=== PATIENT | female | born 1955 | race Caucasian/White ===

== ENCOUNTER 2024-10-14 18:45 | Emergency (ER) | payer OTHER ==
[~2024-10-14] VITALS: Ht 157.5 cm; Wt 91.8 kg
--- NOTE | 2024-10-14 18:55 | ED.PDOC ---
History of Present Illness HPI Comments 67-year-old obese female who is brought in by ambulance for 2 day history of shortness of breath and wheezing. Per EMS report, patient has a history of CHF, DM, HLD, and HTN. She endorses on progressively worsening symptoms following initial gradual in unprovoked onset. Breathing worsens whenever laying down and improves upon sitting right up. She denies having any chest pain, cough, congestion, fever, chills, or further associated symptoms. Time Seen by MD: 18:40 Reviewed Notes: Nurses Notes, Embroiderer Notes, Medications Allergies: Coded Allergies: NO KNOWN ALLERGIES (Unverified , 10/14/24) Information Source: Patient, Emergency Med Personnel Mode of Arrival: EMS Severity: Moderate Timing: Days Duration: Since onset Prehospital treatment: 12 Lead EKG, Dust Mop Maker Past Medical History PAST MEDICAL HISTORY: CHF, DM, High Lipids, HTN Past Medical History (Other): Obesity Surgical History: Surgical History (Other): cosmetic nasal surgery Family History Family History: Unknown Social History Smoker: Non-Smoker Alcohol: Denies ETOH Use Drugs: Denies Drug Use Lives In: Home All Other Systems: Reviewed and Negative (Comprehensive systems review obtained and negative except for what is stated in HPI) Physical Exam General Appearance: No Apparent Distress, Normal HEENT: Normal ENT Inspection, Pharynx Normal, TMs Normal Neck: Full Range of Motion, Non-Tender, Normal, Normal Inspection Respiratory: Chest Non-Tender, No Accessory Muscle Use, No Respiratory Distress, Wheezing (Within bilateral lung grant) Cardiovascular: No Edema, No JVD, No Murmur, No Gallop, Normal Peripheral Pulses, Regular Rate/Rhythm Breast Exam: Deferred Gastrointestinal: No Organomegaly, Non Tender, No Pulsatile Mass, Normal Bowel Sounds, Soft Genitalia: Deferred Pelvic: Deferred Rectal: Deferred Extremities: No calf tenderness, Normal capillary refill, Normal inspection, Normal range of motion, Non-tender, No pedal edema Musculoskeletal : Apperance: Normal Neurologic: Alert, boarder machine II-XII nml as Tested, No Motor Deficits, Normal Affect, Normal Mood, No Sensory Deficits Cerebellar Function: Normal Reflexes: Normal Skin: Dry, Normal Color, Warm Lymphatic: No Adenopathy Was a procedure done? Was a procedure done?: No EKG EKG : Pulse Rate (adult): 96 Blount: Normal Cardiac Rhythm: NSR Block: None Hypertrophy: None ST: Normal Differential Dx Considerations may include: Acute CHF exacerbation, AK, PE, ACS, URI, pneumonia, viral syndrome, among others X-Ray, Labs, Meds, VS Vital Signs Date Time Temp Pulse Resp B/P (MAP) Pulse Ox O2 Delivery O2 Flow Rate FiO2 10/14/24 19:04 96 10/14/24 18:47 96 10/14/24 18:47 18 97 Room Air* 0 21 10/14/24 18:47 98.8 95 18 175/85 (115) 97 98.8 Lab Test 10/14/24 20:21 10/14/24 19:07 Range/Units Troponin I High Sensitivity 3 L 4 </=34 ng/L White Blood Count 4.5 4.4-10.8 10^3/uL Red Blood Count 3.74 L 4.0-5.20 10^6/uL Hemoglobin 11.4 L 12.2-16.2 g/dL Hematocrit 33.0 L 36.0-46.0 % Mean Corpuscular Volume 88.2 80.0-100.0 fL Mean Corpuscular Hemoglobin 30.4 28.0-32.0 pg Mean Corpuscular Hemoglobin Concent 34.5 32.0-36.0 g/dL Red Cell Distribution Width 13.4 11.8-14.3 % Platelet Count 324 140-450 10^3/uL Mean Platelet Volume 7.8 6.9-10.8 fL Neutrophils (%) (Auto) 73.8 37.0-80.0 % Lymphocytes (%) (Auto) 13.3 10.0-50.0 % Monocytes (%) (Auto) 10.5 0.0-12.0 % Eosinophils (%) (Auto) 1.9 0.0-7.0 % Basophils (%) (Auto) 0.5 0.0-2.0 % Neutrophils # (Auto) 3.3 1.6-8.6 10 ^3/uL Lymphocytes # (Auto) 0.6 0.4-5.4 10 ^3/uL Monocytes # (Auto) 0.5 0-1.3 10 ^3/uL Eosinophils # (Auto) 0.1 0-0.8 10 ^3/uL Basophils # (Auto) 0 0-0.2 10 ^3/uL Nucleated Red Blood Cells 0.0 % Sodium Level 140 136-145 mmol/L Potassium Level 4.7 3.5-5.1 mmol/L Chloride Level 107 98-107 mmol/L Carbon Dioxide Level 24 20-31 mmol/L Anion Gap 9 5-15 Blood Urea Nitrogen 7 L 9-23 mg/dL Creatinine 0.90 0.550-1.02 mg/dL Glomerular Filtration Rate Calc 69 >90 mL/min BUN/Creatinine Ratio 7.8 L 10.0-20.0 Serum Glucose 160 H 74-106 mg/dL Calcium Level 10.1 8.7-10.4 mg/dL B-Type Natriuretic Peptide 42.57 0-100 pg/mL [place] [id number] Ph: [phone] DIAGNOSTIC IMAGING Diagnostic Imaging Report : [id number] Signed PATIENT: NADIYA PORTILLO ACCT: [id number] UNIT: [id number] : 1955 LOC: ER ROOM / BED: / AGE / SEX: 69 / F ADM STATUS: REG ER SERVICE 56 ORDERING PHYSICIAN: ADAM WILLIS MD PROCEDURE(s): CXRP - CHEST PORTABLE REASON: sob ORDER NUMBER(s): [id number], ACCESSION NUMBER(s): [id number] CHEST RADIOGRAPH Indication: sob Technique: Single frontal view of the chest was obtained Comparison: None FINDINGS: Lines and Tubes: None Lungs: No focal consolidation. Pleura: No effusion. No pneumothorax. Cardiomediastinal contours: Unremarkable Bones: No acute osseous abnormality. IMPRESSION: 1. No acute cardiopulmonary disease. ATED BY: NOLVIA BARRIENTOS Jr., DO DICTATED DATE/TIME: 10/14/242023 SIGNED BY: NOLVIA BARRIENTOS Jr., DO SIGNED DATE/TIME: 10/14/242023 CC: Time of 1ST Reevaluation: 19:10 Reevaluation 1ST: Unchanged Patient Education/Counseling: Diagnosis, Treatment Family Education/Counseling: No Family Present Additional Information Previous visits reviewed: N/A The following tests were ordered, and results were reviewed by me: EKG, troponin, chest x-ray, UA, CBC, BMP, BNP Additional Information was gathered from interviewing the following independent historians: EMS I reviewed and agreed with the following test results read by other providers: Chest x-ray I discussed treatment and results with medical personnel and: patient SEPSIS Sepsis Screen Physician Orders Urinalysis (10/14/24 18:48) Chest Portable (10/14/24 18:57) Electrocardigram (10/14/24 18:48) Troponin-I Hs (10/14/24 21:48) Electrocardigram (10/14/24 19:48) Electrocardigram (10/14/24 21:48) Vital Signs Date Time Temp Pulse Resp B/P (MAP) Pulse Ox O2 Delivery O2 Flow Rate FiO2 10/14/24 19:04 96 10/14/24 18:47 96 10/14/24 18:47 18 97 Room Air* 0 21 10/14/24 18:47 98.8 95 18 175/85 (115) 97 98.8 Laboratory Tests Test 10/14/24 19:07 White Blood Count 4.5 10^3/uL (4.4-10.8) Departure 1 Departure Time of Disposition: 22:12 (Patient's workup is benign. Patient now reports that she does not want to be admitted she has no health complaints and wants to be discharge. We will discharge patient home with outpatient follow up) Impression: Primary Impression: Wheezing Disposition: 01 HOME / SELF CARE / HOMELESS Condition: Stable Additional Instructions: Your workup today was benign. You should follow up with your regular doctor within 1 week. You should stay well rested and well hydrated. If your symptoms worsen or you have any other concerns please return to the emergency room. Discharged With: Self Critical Care Note Critical Care Time?: No Stability Stability form required: No Heart Score Heart Score: Heart Score Response (Comments) Value History Slightly Suspicious 0 EKG Normal 0 Age >65 2 Risk Factors 1 or 2 risk factors 1 Troponin Normal limit 0 Total 3 I personally scribed for ADAM WILLIS MD ([email or web address]) on 10/14/24 at 18:55. Electronically submitted by Bj Clifford ([email or web address]). I personally scribed for ADAM WILLIS MD ([email or web address]) on 10/14/24 at 19:04. Electronically submitted by Bj Clifford ([email or web address]). I personally scribed for ADAM WILLIS MD ([email or web address]) on 10/14/24 at 21:29. Electronically submitted by Bj Clifford ([email or web address]). ADAM WILLIS MD Oct 14, 2024 18:55
[2024-10-14 19:25] LABS: Basophils # (auto) 0 10 ^3/uL (0-0.2); Basophils % (auto) 0.5 % (0.0-2.0); Eosinophils # (auto) 0.1 10 ^3/uL (0-0.8); Eosinophils % (auto) 1.9 % (0.0-7.0); Hemoglobin 11.4 g/dL (12.2-16.2); Lymphocytes # (auto) 0.6 10 ^3/uL (0.4-5.4); Lymphocytes % (auto) 13.3 % (10.0-50.0); Mean Corpuscular Hemoglobin 30.4 pg (28.0-32.0); Mean Corpuscular Hgb Conc. 34.5 g/dL (32.0-36.0); Mean Corpuscular Volume 88.2 fL (80.0-100.0); Monocytes # (auto) 0.5 10 ^3/uL (0-1.3); Monocytes % (auto) 10.5 % (0.0-12.0); Neutrophils # (auto) 3.3 10 ^3/uL (1.6-8.6); Neutrophils % (auto) 73.8 % (37.0-80.0); Platelet Count (auto) 324 10^3/uL (140-450); Red Blood Cells 3.74 10^6/uL (4.0-5.20); Red Cell Distribution Width 13.4 % (11.8-14.3); White Blood Cell 4.5 10^3/uL (4.4-10.8)
[2024-10-14 19:35] LABS: Chloride 107 mmol/L (98-107); Potassium 4.7 mmol/L (3.5-5.1); Sodium 140 mmol/L (136-145)
[2024-10-14 19:36] LABS: Anion Gap 9 (5-15); Carbon Dioxide 24 mmol/L (20-31)
[2024-10-14 19:37] LABS: Calcium 10.1 mg/dL (8.7-10.4)
[2024-10-14 19:42] LABS: BUN/Creatinine Ratio 7.8 (10.0-20.0)
[2024-10-14 19:55] LABS: Blood Urea Nitrogen 7 mg/dL (9-23); Glucose 160 mg/dL (74-106)
--- NOTE | 2024-10-14 20:27 | DVH ---
CHEST RADIOGRAPH Indication: sob Technique: Single frontal view of the chest was obtained Comparison: None FINDINGS: Lines and Tubes: None Lungs: No focal consolidation. Pleura: No effusion. No pneumothorax. Cardiomediastinal contours: Unremarkable Bones: No acute osseous abnormality. IMPRESSION: 1. No acute cardiopulmonary disease.
[2024-10-14 23:00] VITALS: BP 138/89; PULSE 88; RESP 14; TEMP 98.6; O2SAT 98
--- NOTE | 2024-10-15 14:19 | ECG ---
[facility] Test Date: 2024-10-14 Test Time: 18:47:39 Pat Name: ALPA PORTILLO Department: ED Room: Gender: F [employer] Interleafer: [place] : 1955 Requested By: ADAM WILLIS Order Number: [id number] Reading MD: Dayton Arevalo Measurements Intervals [place] Rate: 96 P: 54 TN: 147 QRS: 32 QRSD: 91 T: 68 QT: 351 QTc: 444 Interpretive Statements Sinus rhythm Electronically Signed On 10-15-2024 22:56:20 PDT by Dayton Arevalo Please click the below link to view image of tracing.
== END 2024-10-14 23:16 | disposition home or self-care (01) ==
LOC: EDBD 18:45 → ER 18:45
DX: R06.2 Wheezing (principal); E78.5 Hyperlipidemia, unspecified; I11.0 Hypertensive heart disease with heart failure; I50.9 Heart failure, unspecified; E11.9 Type 2 diabetes mellitus without complications; E66.9 Obesity, unspecified; Z68.37 Body mass index [BMI] 37.0-37.9, adult; Z98.890 Other specified postprocedural states
CPT/HCPCS: 36415; 71045; 80048; 83880; 84484; 85025; 93005